=== PATIENT | female | born 1995 | race Caucasian/White ===

== ENCOUNTER → 2018-06-04 16:48 | Outpatient (CLI) | payer OTHER, SELFPAY ==
[2018-06-04 16:55] LABS: Bacteria Urine None Seen; RBC Urine None Seen (0-5/HPF)
[2018-06-04 17:33] LABS: Appearance Urine UA CLEAR; Bilirubin Urine UA NEGATIVE (NEGATIVE); Color Urine UA YELLOW; Glucose Urine UA NEGATIVE (Normal); Ketones Urine UA NEGATIVE (NEGATIVE); Leukocyte Esterase Urine UA NEGATIVE (NEGATIVE); Nitrite Urine UA NEGATIVE (Negative); Occult Blood Urine UA NEGATIVE (Negative); Protein Urine UA NEGATIVE (Negative); Urobilinogen Urine UA 0.2 E.U./dL (0.2); pH Urine UA 6.5 (4.5-8.0)
[2018-06-04 17:47] LABS: Culture Indicated Urine Cult Not Indicated; Squamous Epithelial Cell Urine 0-1 /HPF; WBC Urine 0-1/HPF (0-5/HPF)
[2018-06-04 18:09] LABS: HCG Quantitative /Beta subunit < 2.39 mIU/mL
== END ==
PROVIDERS: Family Provider Specialist; Visit Provider Specialist
DX: R10.9 Unspecified abdominal pain (principal); R35.0 Frequency of micturition
CPT/HCPCS: 36415; 81001; 84702

== ENCOUNTER → 2018-06-05 15:44 | Outpatient (REF) | payer OTHER, SELFPAY ==
[2018-06-05 17:20] LABS: Urine N gonorrhoeae NOT DETECTED
[2018-06-05 17:26] LABS: Urine Chlamydia NOT DETECTED
== END ==
LOC: LAB 15:44
PROVIDERS: Family Provider Specialist; PCP Specialist; Visit Provider Specialist
DX: Z20.2 Contact with and (suspected) exposure to infections with a predominantly sexual mode of transmission (principal)
CPT/HCPCS: 87491; 87591